=== PATIENT | male | born 1945 | race Caucasian/White ===

== ENCOUNTER 2022-09-03 07:29 | Outpatient (CLI) | payer MEDICARE, SELFPAY ==
[2022-09-03 08:33] LABS: Albumin* 4.4 g/dL (3.3-5.0); Chloride* 102 mmol/L (96-114)
[2022-09-03 08:34] LABS: Potassium* 3.9 mmol/L (3.6-5.1); Sodium* 140 mmol/L (135-149)
[2022-09-03 08:36] LABS: Carbon Dioxide* 32 mmol/L (20-32); Cholesterol* 190 mg/dL (90-199); Estimated Glomerular Filt Rate 78 ml/min; Total Protein* 7.6 g/dL (6.0-8.3)
[2022-09-03 08:37] LABS: Alanine Aminotransferase* 25 U/L (4-50); Alkaline Phosphatase* 102 U/L (40-150); Aspartate Amino Transferase* 29 U/L (12-35); Blood Urea Nitrogen* 21 mg/dL (7-30); Calcium* 9.5 mg/dL (8.4-10.6); Glucose* 113 mg/dL (60-115); HDL Cholesterol* 40 mg/dL (>=40); LDL Cholesterol Calculated 123 mg/dL (<100); Triglycerides* 135 mg/dL (40-149)
[2022-09-03 09:07] LABS: PSA Screen* 0.71 ng/mL (0.10-4.00)
== END 2022-09-03 07:30 | disposition home or self-care (01) ==
LOC: NFLDREF 07:30
PROVIDERS: PCP Family Medicine; Visit Provider Family Medicine
DX: Z00.00 Encounter for general adult medical examination without abnormal findings (principal); E78.5 Hyperlipidemia, unspecified; I10 Essential (primary) hypertension; E66.9 Obesity, unspecified; M10.9 Gout, unspecified; Z12.5 Encounter for screening for malignant neoplasm of prostate
CPT/HCPCS: 80053; 80061; 84153

== ENCOUNTER 2023-03-27 10:27 | Outpatient (CLI) | payer MEDICARE, SELFPAY | END 2023-03-27 10:28 | disposition home or self-care (01) | LOC: NFLDREF 10:28 | PROVIDERS: PCP Family Medicine; Visit Provider Family Medicine | DX: Z01.818 Encounter for other preprocedural examination (principal) | CPT/HCPCS: 80048 ==

== ENCOUNTER 2023-07-27 15:49 | Emergency (ER) | payer MEDICARE, SELFPAY ==
[2023-07-27 16:02] VITALS: BP 168/100; PULSE 80; RESP 18; TEMP 36.7; O2SAT 96; BMI 32.1
--- NOTE | 2023-07-27 16:23 | ED.GENADULT ---
HPI - General Adult General Chief complaint: Extremity Pain/Injury, Lower Stated complaint: Right ankle hurting Time Seen by Provider: 07/27/23 15:59 History of Present Illness HPI narrative: This 78-year-old male comes in with pain in his right foot that started 2 or 3 days ago. He does not report any particular injury event but states that he is active. He feels pain in the arch of his left foot extending out toward the MP joint of his toes. He states that the pain seems little better in the morning but as he ambulates on it through the day it gets worse. Currently he can minimize the pain by walking on his heel and not putting any pressure on the toes of his left feet. He does report a history of gout. He is not currently taking any medicine to manage his gout. Related Data Previous Rx's Medication Instructions Recorded amlodipine 10 mg tablet 10 mg PO DAILY #90 tabs 03/27/23 chlorthalidone 25 mg tablet 25 mg PO DAILY #90 tabs 03/27/23 oxybutynin chloride 10 mg 10 mg PO DAILY #90 tabs 03/27/23 tablet,extended release 24 hr ketorolac 10 mg tablet 10 mg PO Q8H 5 days #15 tabs 07/27/23 methylprednisolone 4 mg tablets in See Rx Instructions PO .COMPLEX 07/27/23 a dose pack (Medrol (Elvis)) #21 ea Allergies Allergy/AdvReac Type Severity Reaction Status Date / Time No Known Allergies Allergy Unknown Unverified 03/27/23 08:57 Review of Systems Status of ROS: Reports: 10 or more systems reviewed and unremarkable except as noted in History and below Narrative: Constitutional: No fevers, no weight gain or loss. Eyes: No discharge. No vision changes. HENT: No congestion, no sore throat, no ear pain. Cardiovascular: No chest pain, no palpitations. Respiratory: No shortness of breath, no wheezes, no cough. Gastrointestinal: No abdominal pain, no vomiting, no diarrhea. Genitourinary: No dysuria, no hematuria. Musculoskeletal: Normal range of motion. Pain in the left foot as described above. Skin: No rashes, no pruritis. Neurological: No dizziness, weakness, sensory change, speech change. Endo/Heme/Allergies: No bruising or bleeding. No polydipsia. Pysch: no suicidality, no anxiety, no insomnia. All other systems reviewed and are negative. [facility] Surgical History (Updated 09/03/22 @ 17:12 by Marjan Cabezas) History of laminectomy (07/21/09) ?Z98.890 - Other specified postprocedural states (ICD-10) History of colonoscopy ?Z98.890 - Other specified postprocedural states (ICD-10) Social History Smoking Status: Never smoker Little interest or pleasure in doing things: not at all Feeling down, depressed, or hopeless: not at all Exam Narrative: Exam Narrative: Constitutional: Well-developed, well-nourished, no acute distress. HEENT: Normocephalic, atraumatic. Neck: Normal range of motion. Nontender. Supple. Heart: Regular. No murmurs. Normal rate. Intact distal pulses. Lungs: Clear to auscultation. No chest discomfort. No wheezes, rhonchi, or rales. Abdomen: Normal bowel sounds. Nontender. No rebound tenderness. Genitalia: Deferred. Back: No midline tenderness. Normal range of motion. Extremities: Normal range of motion. No injury. Diffuse pain in the left foot involving the arch of the foot and the distal portion of the left foot. He does have some erythema and mild swelling around the MP joint of the great toe. Skin: Intact. No rash. Warm. No erythema or pallor. Neurologic: No altered sensation. No weakness. Alert and oriented. Psychiatric: No suicidality. No anxiety or depression. No insomnia. Nursing notes and vitals signs are reviewed. Const: Vital Signs, click to edit/add: Vital Signs - 24 hr 07/27/23 16:02 Temperature 98.1 F Pulse Rate [Right Pulse Oximeter] 80 Respiratory Rate 18 Blood Pressure [Le ft Upper Arm] 168/100 H Pulse Oximetry 96 Oxygen Delivery Me thod Room Air Course Vital Signs Vital signs: Initial Vital Signs Temperature 98.1 F 07/27/23 16:02 Temperature Source Temporal Artery Scan 07/27/23 16:02 Pulse Rate 80 07/27/23 16:02 Respiratory Rate 18 07/27/23 16:02 Blood Pressure 168/100 H 07/27/23 16:02 Blood Pressure Mean 122 H 07/27/23 16:02 Blood Pressure Position Sitting 07/27/23 16:02 Pulse Oximetry 96 07/27/23 16:02 Oxygen Delivery Method Room Air 07/27/23 16:02 Vital Signs Temperature 98.1 F 07/27/23 16:02 Pulse Rate 80 07/27/23 16:02 Respiratory Rate 18 07/27/23 16:02 Blood Pressure 168/100 H 07/27/23 16:02 Pulse Oximetry 96 07/27/23 16:02 Oxygen Delivery Method Room Air 07/27/23 16:02 Temperature 98.1 F 07/27/23 16:02 Pulse Rate 80 07/27/23 16:02 Respiratory Rate 18 07/27/23 16:02 Blood Pressure 168/100 H 07/27/23 16:02 Pulse Oximetry 96 07/27/23 16:02 Oxygen Delivery Method Room Air 07/27/23 16:02 Medical Decision Making MDM Narrative Medical decision making narrative: This patient comes in with pain in his left foot as described above. I did discuss lab and imaging options with the patient but it does appear that there is no significant mechanism of injury that mandates imaging at this time. Additionally he has a history of gout and his symptoms are triggering suspicion for a flare-up of gout in his right foot. The patient did receive an oral dose of dexamethasone 10 mg and prescriptions are provided for Medrol Dosepak and Toradol. Discharge Plan Discharge Clinical Impression: Gout Patient Disposition: Home, Self-Care Condition: Stable Additional Instructions: Take medication as indicated. Activity as tolerated. Follow up with MD or return if worsening. Prescriptions: New ketorolac 10 mg tablet 10 mg PO Q8H 5 Days Qty: 15 0RF methylprednisolone [Medrol (Elvis)] 4 mg tablets,dose pack See Rx Instructions .ROUTE .COMPLEX Qty: 21 0RF Rx Instructions: orally per package directions No Action amlodipine 10 mg tablet 10 mg PO DAILY Qty: 90 1RF chlorthalidone 25 mg tablet 25 mg PO DAILY Qty: 90 1RF oxybutynin chloride 10 mg tablet extended release 24hr 10 mg PO DAILY Qty: 90 1RF Follow Up/Referrals: Eugenio Campos MD [Primary Care Provider] - Stand Alone Forms: [facility] Info Instructions
[2023-07-27] MEDS: dexAMETHasone 10 MG/ML inj PO (16:59)
== END 2023-07-27 17:26 | disposition home or self-care (01) ==
LOC: ED 16:37
PROVIDERS: Emergency Provider Emergency Medicine Emergency Medical Services; PCP Family Medicine
DX: M10.071 Idiopathic gout, right ankle and foot (principal)
CPT/HCPCS: 99283; 99284; J1100

== ENCOUNTER 2024-02-19 13:42 | Outpatient (CLI) | payer MEDICARE, SELFPAY | END 2024-02-19 13:43 | disposition home or self-care (01) | PROVIDERS: PCP Family Medicine; Visit Provider Family Medicine | DX: I10 Essential (primary) hypertension (principal); E78.5 Hyperlipidemia, unspecified | CPT/HCPCS: 80053; 80061 ==

== ENCOUNTER 2024-03-09 10:12 | Outpatient (CLI) | payer MEDICARE, SELFPAY ==
--- NOTE | 2024-03-09 11:33 | W.ANESCHARGE ---
Anesthesia Charges Start Date/Time Anesthesia Start Date: 03/09/24 Anesthesia Start Time: 11:00 Stop Date/Time Anesthesia Stop Date: 03/09/24 Anesthesia Stop Time: 11:33
== END 2024-03-09 10:13 | disposition home or self-care (01) ==
LOC: OP CLINIC 10:13
PROVIDERS: PCP Family Medicine; Visit Provider Surgery
DX: Z12.11 Encounter for screening for malignant neoplasm of colon (principal); K63.5 Polyp of colon; K57.30 Diverticulosis of large intestine without perforation or abscess without bleeding; K64.8 Other hemorrhoids
CPT/HCPCS: 00811; 45385; 88305; J2704

== ENCOUNTER 2024-07-22 10:04 | Emergency (ER) | payer MEDICARE, SELFPAY ==
[2024-07-22 10:14] VITALS: BP 158/78; PULSE 84; RESP 16; TEMP 36.2; O2SAT 97; BMI 34.2
--- NOTE | 2024-07-22 11:35 | ED_ITS ---
HPI - General Adult General Chief complaint: Skin/Abscess/Foreign Body Stated complaint: gout Time Seen by Provider: 07/22/24 11:22 Source: patient Mode of arrival: ambulatory Limitations: no limitations History of Present Illness HPI narrative: 79-year-old male presenting today with concerns about a gout flare up. Patient does have a history of gout, last flare-up approximately 1 year ago. He states that his symptoms are generally well treated with a Medrol Dosepak he received last time. He denies any systemic symptoms. Complains of pain at the base of the big toe on the right for approximately 1 week and is also started developing mild discomfort at the base of the left toe for the last few days. Of pain on the right radiate to the arch of the foot, this is very typical of his gout flare ups according to the patient. Related Data Previous Rx's ?Medication ?Instructions ?Recorded amlodipine 10 mg tablet 10 mg PO DAILY #90 tabs 02/19/24 chlorthalidone 25 mg tablet 25 mg PO DAILY #90 tabs 02/19/24 methylprednisolone 4 mg tablets in See Rx Instructions PO .COMPLEX 07/22/24 a dose pack (Medrol (Elvis)) #21 ea Allergies Allergy/AdvReac Type Severity Reaction Status Date / Time No Known Allergies Allergy Unknown Verified 07/22/24 10:20 Review of Systems Status of ROS: Reports: 6 or more systems reviewed and unremarkable except as noted in History and below PFSH PFS Surgical History History of laminectomy (07/21/09) ?Z98.890 - Other specified postprocedural states (ICD-10) History of colonoscopy ?Z98.890 - Other specified postprocedural states (ICD-10) Social History What is your current living situation?: declined to answer Problems where you live: declined to answer In the past 12 months, utilities in danger of being shut off: declined to answer In the past 12 mos, have been you worried that your food would run out before you had money to buy more?: declined to answer In the past 12 mos, the food you bought just didn't last and you didn't have money to buy more?: declined to answer Smoking Status: Never smoker How often does anyone, including family, friends and others, physically hurt you : decline to answer How often does anyone, including family, friends and others, insult or talk down to you: decline to answer How often does anyone, including family, friends and others, threaten you with harm: decline to answer How often does anyone, including family, friends and others, scream or curse at you: decline to answer Health Related Social Needs: unsheltered homelessness (Z59.02) Exam Narrative: Exam Narrative: Overweight, well-developed patient in no acute distress. Alert and oriented. Answers questions appropriately. Mood and affect are appropriate. Thoughts are goal oriented and rational. No tangential or magical thinking noted. Patient speaks in full sentences without needing to catch his breath. Well groomed. HEENT: Normocephalic atraumatic. Extraocular muscles are intact. Conjunctivae are moist without any icterus noted. Moist mucous membranes. Extremities: Patient has swelling of the right foot with some mild erythema and tenderness at the base of the big toe. Left foot has mild swelling, lesser degree than the right, no erythema noted. Const: Vital Signs, click to edit/add: Vital Signs - 24 hr 07/22/24 10:14 Temperature 97.2 F L Pulse Rate [Pulse Oximeter] 84 Respiratory Rate 16 Blood Pressure [Le ft Upper Arm] 158/78 H Pulse Oximetry 97 Oxygen Delivery Me thod Room Air Course Vital Signs Vital signs: Initial Vital Signs Temperature 97.2 F L 07/22/24 10:14 Temperature Source Temporal Artery Scan 07/22/24 10:14 Pulse Rate 84 07/22/24 10:14 Respiratory Rate 16 07/22/24 10:14 Blood Pressure 158/78 H 07/22/24 10:14 Blood Pressure Mean 104 07/22/24 10:14 Blood Pressure Position Sitting 07/22/24 10:14 Pulse Oximetry 97 07/22/24 10:14 Oxygen Delivery Method Room Air 07/22/24 10:14 Vital Signs Temperature 97.2 F L 07/22/24 10:14 Pulse Rate 84 07/22/24 10:14 Respiratory Rate 16 07/22/24 10:14 Blood Pressure 158/78 H 07/22/24 10:14 Pulse Oximetry 97 07/22/24 10:14 Oxygen Delivery Method Room Air 07/22/24 10:14 Temperature 97.2 F L 07/22/24 10:14 Pulse Rate 84 07/22/24 10:14 Respiratory Rate 16 07/22/24 10:14 Blood Pressure 158/78 H 07/22/24 10:14 Pulse Oximetry 97 07/22/24 10:14 Oxygen Delivery Method Room Air 07/22/24 10:14 Medical Decision Making MDM Narrative Medical decision making narrative: 79-year-old male with pain of the right big toe, consistent with previous gout flare ups. Other possibilities include cellulitis, musculoskeletal discomfort. Patient denies any trauma to the area so this would be less likely. At this time patient received Toradol in the ED which she states has helped him significantly in the past and will be sent home with a Medrol Dosepak. Follow- up with PCP as needed. Discharge Plan Discharge Clinical Impression: Gout Patient Disposition: Home, Self-Care Condition: Stable Instructions: Gout (ED) Additional Instructions: Follow-up with your primary care provider if you feel like you were not improving. Prescriptions: New methylprednisolone [Medrol (Elvis)] 4 mg tablets,dose pack See Rx Instructions .ROUTE .COMPLEX Qty: 21 0RF Rx Instructions: orally per package directions No Action chlorthalidone 25 mg tablet 25 mg PO DAILY Qty: 90 3RF amlodipine 10 mg tablet 10 mg PO DAILY Qty: 90 3RF Follow Up/Referrals: Eugenio Campos MD [Primary Care Provider] - Stand Alone Forms: [employer] Info Instructions
[2024-07-22] MEDS: KETOROLAC 60 MG/2 ML inj IM (11:49)
[2024-07-22] MEDS: dexAMETHasone 10 MG/ML inj PO (11:49)
== END 2024-07-22 12:01 | disposition home or self-care (01) ==
PROVIDERS: Emergency Provider Family Medicine; PCP Family Medicine
DX: M10.9 Gout, unspecified (principal)
CPT/HCPCS: 96372; 99284; J1100; J1885